=== PATIENT | male | born 1970 | race Caucasian/White ===

== ENCOUNTER 2018-09-17 14:29 | Outpatient (CLI) | payer OTHER ==
--- NOTE | 2018-09-17 17:27 | RAD ---
ADULT BONE SURVEY: 09/17/18 Total of 21 images. INDICATIONS: Multiple myeloma. Views of the cervical, thoracic, and lumbar spine obtained AP and lateral. The vertebral bodies maint ain height throughout. There are moderate degenerative changes seen throughout. No lytic process. No evidence of compression deformity. Views of the skull show no focal lytic or lucent lesions. AP pelvis shows no focal lytic or lucent lesions. Views of both lower extremities including femurs, tibia and fibula show no focal lytic lesions. Upper extremities including humerus, radius and ulna show no focal lytic lesions. IMPRESSION: Adult bone survey shows no evidence of osseous lytic lesions. POS: [facility]
== END 2018-09-17 14:30 | disposition home or self-care (01) ==
LOC: BICRAD 14:29
PROVIDERS: ATTEND Internal Medicine Hematology & Oncology
DX: C90.00 Multiple myeloma not having achieved remission (principal); D50.8 Other iron deficiency anemias
CPT/HCPCS: 36415; 77075; 80053; 82232; 82248; 82728; 83540; 83550; 83615; 83883; 84100; 84165; 84550; 86334

== ENCOUNTER 2018-09-29 07:35 | Outpatient (CLI) | payer OTHER ==
--- NOTE | 2018-09-29 10:38 | PET ---
EXAM: PET/CT from vertex of skull through the feet HISTORY: Multiple myeloma versus Waldenstrom TECHNIQUE: PET scanning with CT attenuation correction was performed from the vertex of the skull to the feet fo llowing the intravenous administration of 10.7 millicuries [id number]. COMPARISON: Bone survey dated September 17, 2018 FINDINGS: Biodistribution:The biodistribution for the exam appears acceptable. Head and neck: There is appropriate background activity within the brain. No hypermetabolic lymphaden opathy or masses identified. Thorax: No hypermetabolic pulmonary lesion, pleural effusion or lymphadenopathy is present. There is a 5 mm pulmonary nodule within the right middle lobe. This is below PET resolution threshold. Abdomen and pelvis: There is expected background activity within the GI and systems. No hypermetab olic mass, lymphadenopathy or ascites is present. There is massive splenomegaly with the spleen measuring up to 22 cm. The background activity of the s pleen is similar to that of the liver. Peak SUV uptake associated with the spleen is 2.62 with a mean uptake of 1.91. Osseous structures and skin: There is a hypermetabolic osseous lesion involving the right condyle. [place] causes heterogeneous appearance to the trabecular bone of the medial femoral condyle and measures approximately 6 cm in size. Peak SUV uptake associated with this lesion is 13.04 with a mean uptake of 10.57. No additional focal hypermetabolic bone lesion is identified. There are numerous areas of mild hypermetabolic uptake surrounding the joint spaces of the feet bilaterally. There is ch anges of osteonecrosis involving the great toe sesamoids bilaterally with fracturing of the fibular great toe sesamoid on the right foot. No definite destructive lytic lesion is evident. There are smal l bone islands seen within the base of the great toe metatarsal of the left foot as well as within the talus of the right foot and distal tibia of both lower extremities. IMPRESSION: Abnormal PET/CT 1. Large focus of hypermetabolic uptake involving the medial femoral condyle of the right knee is aixa picious for a solitary multiple myelomatous lesion. 2. Massive splenomegaly 3. Mild hypermetabolic uptake involving the joint spaces of the foot is likely degenerative in nature . 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
== END 2018-09-29 07:36 | disposition home or self-care (01) ==
LOC: PET 07:35
PROVIDERS: ATTEND Internal Medicine Hematology & Oncology
DX: C90.00 Multiple myeloma not having achieved remission (principal); R16.1 Splenomegaly, not elsewhere classified; M87.9 Osteonecrosis, unspecified; M84.5 Pathological fracture in neoplastic disease
CPT/HCPCS: 36415; 78816; 85810; A9552

== ENCOUNTER 2018-10-02 08:10 | Day surgery (SDC) | payer OTHER ==
[2018-10-01 12:38] VITALS: BMI 29.1
[2018-10-02 08:30] LABS: INR-International Normal Ratio 1.2; Prothrombin Time 15.4 SEC (12.0-14.7)
[2018-10-02 08:31] LABS: PTT 32.9 SEC (22.9-36.1)
[2018-10-02] MEDS ORDERED: Midazolam HCl 2 mg/2 ml Vial ONE (10:01)
[2018-10-02] MEDS ORDERED: Sodium Bicarbonate 2.5 MEQ/5 ML VIAL ONE (10:01)
[2018-10-02] MEDS ORDERED: Fentanyl 100 MCG/2 ML VIAL ONE (10:02)
[2018-10-02 11:10] VITALS: BP 123/78; TEMP 98.9
--- NOTE | 2018-10-02 14:21 | CT ---
PROCEDURE CT GUIDED BONE MARROW BIOPSY AND ASPIRATE: INDICATION: Multiple myeloma. Bone marrow biopsy and aspirate requested. FINDINGS: An 11 gauge arrow battery powered instrument is used. Approximately 7 cc aspirate was obtained and g iven to maxillofacial pathology. A core biopsy was then obtained and given to pathology. Adequate samp les were obtained. PROCEDURE NOTE: The procedure was discussed with the patient. The patient was placed prone on the CT table. Imaging through the pelvis was performed. The entry site posteriorly over the left posterior iliac spine wa s identified and marked on skin. The skin was then prepped and draped in a sterile manner. Local an esthesia was administered with Lidocaine and bicarb. A tiny skin incision was made with a scalpel. The 11-gauge needle with trocar in place was introduced under CT guidance. The needle was placed thr ough the cortex of posterior iliac spine into the marrow. The trocar was removed and aspirate was ob tained and given to pathology. A battery instrument was then attached and core biopsy was then obtained at the same position. [place] lent specimen was obtained. Post procedure CT showed no hematoma. The patient tolerated the procedure well with no problems or c omplications. POS: [facility]
== END 2018-10-02 11:45 | disposition home or self-care (01) ==
LOC: RAD 08:10
PROVIDERS: ATTEND Internal Medicine Hematology & Oncology
PROC: 079T3ZX Drainage of Bone Marrow, Percutaneous Approach, Diagnostic (ICD-10-PCS; principal; 2018-10-02)
PROC: 07DR3ZX Extraction of Iliac Bone Marrow, Percutaneous Approach, Diagnostic (ICD-10-PCS; principal; 2018-10-02)
DX: C83.00 Small cell B-cell lymphoma, unspecified site (principal); D50.9 Iron deficiency anemia, unspecified; I12.9 Hypertensive chronic kidney disease with stage 1 through stage 4 chronic kidney disease, or unspecified chronic kidney disease; N18.3 Chronic kidney disease, stage 3 (moderate); E03.9 Hypothyroidism, unspecified; F17.220 Nicotine dependence, chewing tobacco, uncomplicated; M10.9 Gout, unspecified; M19.90 Unspecified osteoarthritis, unspecified site; Z79.899 Other long term (current) drug therapy
CPT/HCPCS: 20225; 77012; 84156; 84166; 85097; 85610; 85730; 86335; 88184; 88237; 88305; 88311; 88313; 88341; 88342; 88365; J2250; J3010

== ENCOUNTER 2019-02-02 13:46 | Outpatient (CLI) | payer OTHER ==
--- NOTE | 2019-02-02 14:20 | PET ---
Radionucleotide PET scan with CT attenuation correction HISTORY: Waldenstrom's macroglobulinemia. Restaging. COMPARISON: 09/29/2018. FINDINGS: Physiologic uptake of radiotracer throughout the enteric system and along each urinary trac t. Muscular uptake around the shoulders and hips. No pathologic areas of increased activity evident. Nondiagnostic CT attenuation correction images again show massive splenomegaly. There is a tiny nonsp ecific subpleural noncalcified nodule within the anterior subpleural aspect of the lateral segment right middle lung lobe. Legs are not included on today's exam. Whole-body exam not performed. The cytogenetics technologist communicat ed to the cancer Center for confirmation of the correct exam before performing this study. IMPRESSION: No evidence of metastatic disease. Severe splenomegaly, stable.
== END 2019-02-02 13:47 | disposition home or self-care (01) ==
LOC: PET 13:46
PROVIDERS: ATTEND Internal Medicine Hematology & Oncology
DX: C88.0 Waldenstrom macroglobulinemia (principal); C90.00 Multiple myeloma not having achieved remission; R16.1 Splenomegaly, not elsewhere classified
CPT/HCPCS: 78815; A9552

== ENCOUNTER 2020-09-12 18:39 | Inpatient (IN) | payer BC ==
[2020-09-12] MEDS ORDERED: Ondansetron PF 4 MG/2 ML Vial IVP PRN ×2 (21:15→21:22)
[2020-09-12] MEDS ORDERED: Acetaminophen 325 MG TAB PO PRN (21:15)
[2020-09-12] MEDS ORDERED: Ondansetron ODT 4 MG TAB SL PRN (21:15)
[2020-09-12] MEDS ORDERED: Acetaminophen 500 MG TAB PO PRN (21:22)
[2020-09-12] MEDS ORDERED: Ondansetron ODT 4 MG TAB PO PRN (21:22)
[2020-09-12] MEDS ORDERED: hydrALAZINE 20 MG/ML VIAL SLOW IVP PRN (21:22)
[2020-09-12] MEDS ORDERED: Benzonatate 100 MG CAP PO PRN (21:22)
[2020-09-12] MEDS ORDERED: GUAIFENESIN SF SOLN 200 MG/10 ML UDCUP PO PRN (21:22)
[2020-09-12] MEDS ORDERED: Ketorolac Tromethamine 30 MG/ML VIAL IVP SCH (21:45)
[2020-09-12] MEDS: Sodium Chloride 0.9% 1,000 ML IV SCH (22:01)
[2020-09-12] MEDS: Ketorolac Tromethamine 30 MG/ML VIAL IVP SCH (22:01)
[2020-09-12 23:20] VITALS: BMI 33.1
[2020-09-13] MEDS: Ketorolac Tromethamine 30 MG/ML VIAL IVP SCH ×4 (04:23→21:08)
[2020-09-13 06:16] LABS: Anion Gap 14 mmol/L (10-20); BUN (Urea Nitrogen) 11 mg/dL (8.4-25.7); Calc. Creatinine Clearance 154 mL/min (70-130); Calcium 8.9 mg/dL (7.8-10.44); Carbon Dioxide 22 mmol/L (22-29); Chloride 106 mmol/L (98-107); Glucose 143 mg/dL (70-105); Potassium 3.4 mmol/L (3.5-5.1); Sodium 139 mmol/L (136-145)
[2020-09-13 06:24] LABS: #Lymphocytes 0.4 thou/uL (1.20-3.40); #Monocytes 0.4 thou/uL (0.11-0.59); #Neutrophils 8.8 thou/uL (1.40-6.50); %Basophils 0.1 % (0.0-1.0); %Eosinophils 0.1 % (0.0-10.0); %Lymphocytes 3.9 % (21.0-51.0); %Monocytes 4.1 % (0.0-10.0); %Neutrophils 91.8 % (42.0-75.0); Hemoglobin 12.3 g/dL (14.0-18.0); Large Platelets SLIGHT; MDiff Complete? YES; Mean Corpuscular HGB CONC 33.9 g/dL (32.0-36.0); Mean Corpuscular Hemoglobin 29.7 pg (27.0-31.0); Mean Corpuscular Volume 87.8 fL (78.0-98.0); Mean Platelet Volume 11.1 fL (7.4-10.4); Platelet Count 98 thou/uL (130-400); Platelet Morphology Comment Appears Decreased; RBC Distribution Width 13.8 % (11.5-14.5); Red Blood Cell (RBC) Count 4.13 mill/uL (4.70-6.10); White Blood Cell (WBC) Count 9.6 thou/uL (4.8-10.8)
[2020-09-13] MEDS: Sodium Chloride 0.9% 1,000 ML IV SCH ×2 (08:48→17:00)
[2020-09-13] MEDS ORDERED: CeleCOXIB 100 MG CAP PO SCH (09:00)
[2020-09-13] MEDS ORDERED: Lisinopril 10 MG TAB PO SCH ×2 (09:00→21:30)
[2020-09-13] MEDS ORDERED: Allopurinol 300 MG TAB PO SCH ×2 (09:00→22:00)
[2020-09-13] MEDS: Ferrous Sulfate 325 MG TAB PO SCH ×2 (10:28→16:57)
[2020-09-13] MEDS: Famotidine 20 MG TAB PO SCH ×2 (10:28→21:08)
[2020-09-13] MEDS ORDERED: Amlodipine 5 MG TAB PO SCH (21:30)
[2020-09-14] MEDS: Sodium Chloride 0.9% 1,000 ML IV SCH ×3 (04:17→22:18)
[2020-09-14] MEDS: Ketorolac Tromethamine 30 MG/ML VIAL IVP SCH ×4 (04:17→22:16)
[2020-09-14 05:01] LABS: #Lymphocytes 0.8 thou/uL (1.20-3.40); #Monocytes 0.5 thou/uL (0.11-0.59); #Neutrophils 3.9 thou/uL (1.40-6.50); %Basophils 0.3 % (0.0-1.0); %Eosinophils 0.3 % (0.0-10.0); %Monocytes 9.1 % (0.0-10.0); %Neutrophils 74.4 % (42.0-75.0); Hemoglobin 10.8 g/dL (14.0-18.0); Mean Corpuscular HGB CONC 32.5 g/dL (32.0-36.0); Mean Corpuscular Hemoglobin 28.7 pg (27.0-31.0); Mean Corpuscular Volume 88.4 fL (78.0-98.0); Mean Platelet Volume 10.8 fL (7.4-10.4); Platelet Count 71 thou/uL (130-400); RBC Distribution Width 13.9 % (11.5-14.5); Red Blood Cell (RBC) Count 3.76 mill/uL (4.70-6.10); White Blood Cell (WBC) Count 5.2 thou/uL (4.8-10.8)
[2020-09-14 05:03] LABS: Anion Gap 13 mmol/L (10-20); BUN (Urea Nitrogen) 13 mg/dL (8.4-25.7); Calc. Creatinine Clearance 170 mL/min (70-130); Calcium 8.6 mg/dL (7.8-10.44); Carbon Dioxide 23 mmol/L (22-29); Chloride 109 mmol/L (98-107); Glucose 104 mg/dL (70-105); Potassium 3.3 mmol/L (3.5-5.1); Sodium 142 mmol/L (136-145)
[2020-09-14] MEDS: Famotidine 20 MG TAB PO SCH ×2 (09:57→20:22)
[2020-09-14] MEDS: Ferrous Sulfate 325 MG TAB PO SCH ×2 (09:57→17:29)
[2020-09-14] MEDS: Lisinopril 10 MG TAB PO SCH ×2 (09:58→20:22)
[2020-09-14] MEDS ORDERED: Potassium Chloride 20 MEQ TAB PO SCH (14:30)
[2020-09-14] MEDS ORDERED: Zolpidem Tartrate 5 MG TAB PO PRN (17:41)
[2020-09-14] MEDS ORDERED: Amlodipine 5 MG TAB PO SCH ×2 (21:00)
[2020-09-14] MEDS ORDERED: Allopurinol 300 MG TAB PO SCH (21:00)
[2020-09-15] MEDS: Ketorolac Tromethamine 30 MG/ML VIAL IVP SCH (04:11)
[2020-09-15 08:05] VITALS: BP 158/92; TEMP 97.7
[2020-09-15] MEDS: Lisinopril 10 MG TAB PO SCH (08:32)
[2020-09-15] MEDS: Famotidine 20 MG TAB PO SCH (08:32)
[2020-09-15] MEDS: Ferrous Sulfate 325 MG TAB PO SCH (08:32)
[2020-09-15] MEDS: Sodium Chloride 0.9% 1,000 ML IV SCH (08:53)
== END 2020-09-15 10:53 | disposition home or self-care (01) | DRG 195 ==
LOC: ERS 18:39 → SURG A 20:02
PROVIDERS: ADMIT Family Medicine; ATTEND Internal Medicine
DX: J18.9 Pneumonia, unspecified organism (principal); C88.0 Waldenstrom macroglobulinemia; E87.6 Hypokalemia; F17.220 Nicotine dependence, chewing tobacco, uncomplicated; M19.90 Unspecified osteoarthritis, unspecified site; E03.9 Hypothyroidism, unspecified; D50.9 Iron deficiency anemia, unspecified; I12.9 Hypertensive chronic kidney disease with stage 1 through stage 4 chronic kidney disease, or unspecified chronic kidney disease; D69.6 Thrombocytopenia, unspecified; N18.30 Chronic kidney disease, stage 3 unspecified; M10.9 Gout, unspecified; Z92.21 Personal history of antineoplastic chemotherapy; Z98.890 Other specified postprocedural states; Z79.899 Other long term (current) drug therapy
CPT/HCPCS: 36415; 80048; 85025; 94640; 99285; J1885; J1956; J7620

== ENCOUNTER 2021-05-10 11:43 | Outpatient (CLI) | payer BC | END 2021-05-10 11:44 | disposition home or self-care (01) | LOC: RAD 11:43 | PROVIDERS: ATTEND Internal Medicine Hematology & Oncology | DX: R05.9 Cough, unspecified (principal); J98.4 Other disorders of lung | CPT/HCPCS: 71046 ==